=== PATIENT | male | born 1990 | race Caucasian/White ===

== ENCOUNTER 2020-07-17 10:06 | Inpatient (IN) | payer OTHER ==
[~2020-07-17] VITALS: Ht 162.6 cm; Wt 68.5 kg
[2020-07-17] MEDS ORDERED: [UNRECOGNIZED DRUG - OTHER] PO (10:14)
[2020-07-17] MEDS ORDERED: ACETAMINOPHEN 325 MG TABLET PO PRN ×2 (10:45→11:30)
[2020-07-17] MEDS ORDERED: ONDANSETRON HCL 4 MG/2 ML VIAL IVP PRN (10:45)
[2020-07-17 11:00] LABS: ANION GAP 10 mmol/L (8-16); CARBON DIOXIDE 29 mmol/L (22-29); CHLORIDE 100 mmol/L (98-107); GLOMERULAR FILTR. RATE CALC > 60 mL/min (>60); GLUCOSE,RANDOM 109 mg/dL (70-110); POTASSIUM 3.8 mmol/L (3.5-5.1); SODIUM SERUM 139 mmol/L (136-145); UREA NITROGEN, BLOOD 8 mg/dL (7-18)
[2020-07-17 11:06] LABS: BASOPHILS % (AUTO) 0.5 % (0.0-2.0); EOSINOPHILS % (AUTO) 0.4 % (1.0-6.0); HEMATOCRIT 50.5 % (41-53); HEMOGLOBIN 17.1 g/dL (13.5-17.5); LYMPHOCYTES # (AUTO) 1.5 K/uL (1.0-4.8); LYMPHOCYTES % (AUTO) 16.2 % (22.0-44.0); MEAN CORPUSCULAR HEMOGLOBIN 30.6 pg (26.0-34.0); MEAN CORPUSCULAR HGB CONC 33.9 G/dL (31.0-37.0); MEAN CORPUSCULAR VOLUME 91 fL (80-100); MONOCYTES # (AUTO) 0.4 K/uL (0.1-1.0); MONOCYTES % (AUTO) 4.1 % (2.0-9.0); NEUTROPHILS # (AUTO) 7.3 K/uL (1.8-7.7); NEUTROPHILS % (AUTO) 78.8 % (40.0-70.0); PLATELET COUNT (AUTO) 240 K/uL (150-450); RED BLOOD CELL COUNT(AUTO) 5.57 MIL/uL (4.50-5.90); RED CELL DISTRIBUTION WIDTH 12.7 % (11.5-14.5)
[2020-07-17 11:08] LABS: D-DIMER 0.19 mg/L FEU (0.00-0.50); LACTIC ACID 1.1 mmol/L (0.4-2.0); PROTHROMBIN TIME 10.6 SEC (9.4-11.6)
[2020-07-17 11:18] LABS: ALANINE AMINOTRANSFERASE 40 U/L (12-78); ALBUMIN 4.1 g/dL (3.4-5.0); ALKALINE PHOSPHATASE 108 U/L (46-116); ASPARTATE AMINOTRANSFERASE 19 U/L (15-37); BILIRUBIN,TOTAL 0.5 mg/dL (0.1-1.0); CREATINE KINASE, TOTAL ONLY 62 U/L (39-308); FERRITIN 106 ng/mL (26-388); LACTATE DEHYDROGENASE 139 U/L (85-227); LIPASE 71 U/L (73-393); TOTAL PROTEIN, SERUM 7.5 g/dL (6.4-8.2)
[2020-07-17 11:22] VITALS: BP 144/89
[2020-07-17 11:27] LABS: APPEARANCE,URINE CLEAR (CLEAR); BILIRUBIN,URINE NEGATIVE (NEGATIVE); GLUCOSE, URINE (UA) NEGATIVE (NEGATIVE); KETONES,URINE NEGATIVE (NEGATIVE); LEUKOCYTE ESTERASE ,URINE NEGATIVE (NEGATIVE); NITRATE,URINE NEGATIVE (NEGATIVE); OCCULT BLOOD,URINE NEGATIVE (NEGATIVE); PH,URINE 7.5 (5.0-8.0); PROTEIN,URINE NEGATIVE (NEGATIVE); UROBILINOGEN,URINE 0.2 mg/dL (<=1.0)
[2020-07-17 11:29] LABS: BACTERIA,URINE None Seen /HPF (None Seen); RBC,URINE None Seen /HPF (0-2); WBC,URINE None Seen /HPF (0-5)
[2020-07-17] MEDS ORDERED: GuaiFENesin/D-METHORPHAN [SUGAR-FREE] 200-20MG/10 ML SYRUP UDCUP PO PRN (11:30)
[2020-07-17] MEDS ORDERED: ONDANSETRON HCL 4 MG TABLET PO PRN (11:30)
[2020-07-17] MEDS ORDERED: ALBUTEROL SULFATE HFA 90 MCG/PUFF 8 GM INHALER IH PRN (11:30)
[2020-07-17] MEDS ORDERED: NICOTINE 14 MG/24 HOUR PATCH TD PRN (11:30)
[2020-07-17] MEDS ORDERED: DOCUSATE SODIUM 100 MG CAPSULE PO PRN (11:30)
[2020-07-17] MEDS ORDERED: MAGNESIUM HYDROXIDE SUSPENSION 30 ML UDCUP PO PRN (11:30)
[2020-07-17] MEDS ORDERED: LOPERAMIDE HCL 2 MG CAPSULE PO PRN (11:30)
[2020-07-17] MEDS ORDERED: PETROLATUM,WHITE 28 GM JELLY TP PRN (11:30)
[2020-07-17] MEDS ORDERED: CloNIDine HCL 0.1 MG TABLET PO PRN (11:30)
[2020-07-17] MEDS ORDERED: IBUPROFEN 400 MG TABLET PO PRN (11:30)
[2020-07-17] MEDS ORDERED: MAG HYDROX/AL HYDROX/SIMETH ES 30 ML SUSPENSION UDCUP PO PRN (11:30)
[2020-07-17 12:39] LABS: ERYTHROCYTE SEDIMENTATION RATE 3 MM/HR (0-15)
[2020-07-17] MEDS ORDERED: INFLUENZA VIRUS VACCINE QVS 2020-21 (6MO+)/PF 60 MCG/0.5 ML SYRINGE IM ONE (17:15)
[2020-07-17 20:30] VITALS: BP 106/67
[2020-07-18 04:54] VITALS: BP 114/75
[2020-07-18 08:05] VITALS: BP 115/71
[2020-07-18 15:54] VITALS: BP 106/61
[2020-07-18 20:36] VITALS: BP 119/77
[2020-07-19 05:09] VITALS: BP 128/73
[2020-07-19 08:22] VITALS: BP 118/80
[2020-07-19 17:02] VITALS: BP 117/70
[2020-07-19 20:34] VITALS: BP 113/72
[2020-07-20 04:56] VITALS: BP 120/70
[2020-07-20 08:09] VITALS: BP 115/71
[2020-07-20 20:55] VITALS: BP 118/67
[2020-07-21 07:26] VITALS: BP 114/73
[2020-07-21 20:44] VITALS: BP 125/80
[2020-07-22 05:08] VITALS: BP 116/74
[2020-07-22 08:34] VITALS: BP 137/76
[2020-07-22 13:00] VITALS: BP 115/73
[2020-07-22 14:30] VITALS: BP 119/78
[2020-07-22 16:15] VITALS: BP 119/78
[2020-07-22 20:17] VITALS: BP 111/65
[2020-07-23 04:40] VITALS: BP 109/79
[2020-07-23 07:30] VITALS: BP 122/80
[2020-07-23 19:42] VITALS: BP 121/67
[2020-07-24 07:37] VITALS: BP 112/74
[2020-07-24 19:49] VITALS: BP 118/73
[2020-07-25 04:45] VITALS: BP 115/77
[2020-07-25 08:02] VITALS: BP 117/72
[2020-07-25 11:27] LABS: COVID AG,FIA SOURCE NASOPHARYNGEAL
== END 2020-07-25 13:15 | DRG 179 ==
LOC: EMS 10:11 → 6S 11:00
PROVIDERS: ADMIT Internal Medicine; ATTEND Internal Medicine
DX: U07.1 COVID-19 (principal); K29.70 Gastritis, unspecified, without bleeding; F17.210 Nicotine dependence, cigarettes, uncomplicated; Z28.21 Immunization not carried out because of patient refusal
CPT/HCPCS: 82728; 83605; 83615; 83735; 84100; 84145; 85379; 85651; 87426; 36415-L1; 36415-TC; 71045-TC